=== PATIENT | female | born 1935 | race Caucasian/White ===

== ENCOUNTER → 2018-02-17 12:51 | Outpatient (CLI) | payer MEDICARE, SELFPAY ==
--- NOTE | 2018-02-17 | DI.MRI.S_ITS ---
PROCEDURE: MR KNEE RT WO CON INDICATIONS: INTERNAL DERANGEMENT OF RIGHT KNEE TECHNIQUE: Noncontrast sagittal PD fast spin echo and T2 fast spin echo with fat saturation, sagittal 3-D FLASH with fat saturation; coronal T1 spin echo and PD fast spin echo with fat saturation, and axial PD fast spin echo with fat saturation through the knee. COMPARISON: None. FINDINGS: Image quality: Excellent. Menisci: There is medial extrusion of the medial meniscus. Linear oblique high T2 signal intensity traverses the posterior horn medial meniscus, demonstrating inferior articular surface extension. Linear vertical height T2 signal intensity traverses the anterior horn lateral meniscus, demonstrating superior and inferior articular surface extension, indicating radial tearing. Cruciate ligaments: The anterior and posterior cruciate ligaments appear intact. Medial structures: The medial collateral ligament appears intact, but there is a small amount of surrounding T2 signal elevation, consistent with strain. The posterior oblique ligament, semimembranosus tendon insertions, oblique popliteal ligament, and meniscocapsular junction appear intact. Visualized portions of the pes anserinus tendons appear normal. No abnormal bursal fluid. Lateral structures: The lateral collateral ligament, long and short heads of the biceps femoris tendon appear intact. The popliteus tendon appears normal; the popliteofibular ligament appears intact. The posterosuperior and anteroinferior popliteomeniscal fascicles appear intact. The arcuate and fabellofibular ligaments appear intact, on either side of the lateral inferior geniculate artery. Iliotibial band appears normal. Anterior structures: The quadriceps and patellar tendons appear intact. Patellar alignment is normal. No femoral trochlear dysplasia or ventral trochlear prominence. No edema in the infrapatellar fat pad. Bones and cartilage: No bone marrow contusions or fractures. Mild ill-defined, presumably degenerative marrow edema within the medial femoral condyle and medial tibial plateau. There is severe articular cartilage loss overlying the medial patellar facet and adjacent apex. A few small intraosseous ganglia within the underlying patellar apex are present. There is moderate to severe diffuse articular cartilage loss overlying the weightbearing aspects of the medial femoral condyle and medial tibial plateau. Joint space: There is a small knee joint effusion and a small Love's cyst. Normal appearing synovial plicae are incidentally noted. IMPRESSION: 1. Medial and lateral meniscal tearing. 2. Medial and patellofemoral compartment articular cartilage loss. 3. MCL strain. 4. Small knee joint effusion and Love's cyst. Dictated by: Nagi Allen M.D. on 02/17/2018 at 13:26 Approved by: Nagi Allen M.D. on 02/17/2018 at 13:31
== END ==
PROVIDERS: PCP Internal Medicine; Visit Provider Orthopaedic Surgery
DX: S83.241A Other tear of medial meniscus, current injury, right knee, initial encounter (principal); S83.281A Other tear of lateral meniscus, current injury, right knee, initial encounter; S83.411A Sprain of medial collateral ligament of right knee, initial encounter; M25.461 Effusion, right knee; M71.21 Synovial cyst of popliteal space [Baker], right knee
CPT/HCPCS: 73721

== ENCOUNTER → 2019-05-27 15:02 | Outpatient (ROUT) | payer MEDICARE, SELFPAY ==
[2019-05-27 15:36] LABS: Add Manual Diff / Slide Review NO; Basophils Absolute Auto 0 /uL (0-100); Basophils Percent Auto 0.8 % (0-2); Eosinophils Absolute Auto 100 /uL (0-450); Eosinophils Percent Auto 2.7 % (2-4); Hematocrit 35.5 % (36-46); Hemoglobin 12.2 g/dL (12.0-16.0); Lymphocytes Absolute Auto 1100 /uL (1100-4500); Mean Corpuscular HGB Conc 34.5 % (30-36); Mean Corpuscular Hemoglobin 35.4 PG (26-34); Mean Corpuscular Volume 102.8 fL (80-100); Monocytes Absolute Auto 600 /uL (0-900); Monocytes Percent Auto 10.2 % (3-14); Neutrophils Absolute Auto 3600 /uL (1500-7000); Neutrophils Percent Auto 66.3 % (50-75); Platelet Count 177 X10^3/uL (150-400); Red Blood Cell Count 3.45 X10^6/uL (4.0-5.2); Red Cell Distribution Width 13.9 % (11.6-14.8); White Blood Cell Count 5.5 X10^3/uL (4.5-11.0)
[2019-05-27 15:48] LABS: Alanine Aminotransferase 37 IU/L (9-52); Albumin 4.6 g/dL (3.5-5.0); Albumin Globulin Ratio 1.8 (1.0-2.8); Alkaline Phosphatase 72 U/L (38-126); Aspartate Aminotransferase 30 IU/L (14-36); BUN Creatinine Ratio 28.9 (6-22); Bilirubin Total 0.7 mg/dL (0.2-1.3); Blood Urea Nitrogen 26 mg/dL (7-17); Calcium 9.7 mg/dL (8.4-10.2); Carbon Dioxide 28 mmol/L (22-32); Chloride 101 mmol/L (98-107); Cholesterol 141 mg/dL (140-199); Estimated Glomerular Filt Rate 59.9 mL/min (>60); Globulin 2.6 g/dL (1.7-4.1); Glucose 90 mg/dL (80-110); HDL Cholesterol 81 mg/dL (40-60); HEMOLYSIS < 15 (0-50); LDL Cholesterol Calculated 42 mg/dL (<100); Potassium 4.9 mmol/L (3.4-5.1); Sodium 138 mmol/L (137-145); Total Protein 7.2 g/dL (6.3-8.2); Triglycerides 88 mg/dL (35-150)
[2019-05-27 16:18] LABS: TSH w/ Reflex to FT4 1.83 uIU/mL (0.47-4.68)
[2019-05-28 16:10] LABS: Vitamin B12 530 pg/mL (239-931)
== END ==
PROVIDERS: PCP Internal Medicine; Visit Provider Internal Medicine
DX: I49.9 Cardiac arrhythmia, unspecified (principal); E78.2 Mixed hyperlipidemia
CPT/HCPCS: 80053; 80061; 82607; 84443; 85025

== ENCOUNTER → 2020-03-16 15:22 | Outpatient (ROUT) | payer MEDICARE, SELFPAY ==
[2020-03-16 15:58] LABS: Aspartate Aminotransferase 33 IU/L (14-36); BUN Creatinine Ratio 23.3 (6-22); Blood Urea Nitrogen 20 mg/dL (7-17); Calcium 9.5 mg/dL (8.4-10.2); Carbon Dioxide 27 mmol/L (22-32); Chloride 92 mmol/L (98-107); Cholesterol 143 mg/dL (140-199); Estimated Glomerular Filt Rate > 60.0 mL/min (>60); Glucose 84 mg/dL (80-110); HDL Cholesterol 92 mg/dL (40-60); HEMOLYSIS < 15 (0-50); LDL Cholesterol Calculated 36 mg/dL (<100); Potassium 4.4 mmol/L (3.4-5.1); Sodium 129 mmol/L (137-145); Triglycerides 77 mg/dL (35-150)
[2020-03-16 16:28] LABS: TSH w/ Reflex to FT4 1.42 uIU/mL (0.47-4.68)
== END ==
PROVIDERS: PCP Internal Medicine; Visit Provider Internal Medicine
DX: I10 Essential (primary) hypertension (principal); E78.2 Mixed hyperlipidemia; E03.9 Hypothyroidism, unspecified
CPT/HCPCS: 80048; 80061; 84443; 84450

== ENCOUNTER → 2021-06-05 10:52 | Outpatient (CLI) | payer MEDICARE, SELFPAY | PROVIDERS: PCP Internal Medicine; Referring Provider Internal Medicine; Visit Provider Internal Medicine | DX: M85.852 Other specified disorders of bone density and structure, left thigh (principal); Z78.0 Asymptomatic menopausal state; Z85.3 Personal history of malignant neoplasm of breast; Z87.891 Personal history of nicotine dependence; Z82.62 Family history of osteoporosis | CPT/HCPCS: 77080 ==

== ENCOUNTER 2021-12-26 14:04 | Emergency (ER) | payer MEDICARE, SELFPAY ==
[2021-12-26 14:15] VITALS: BP 137/63; PULSE 77; RESP 26; TEMP 36.7; O2SAT 93; BMI 21.1
--- NOTE | 2021-12-26 14:21 | DI.RAD.S_ITS ---
PROCEDURE: XR CHEST 2V INDICATIONS: shortness of breath TECHNIQUE: 2 views of the chest were acquired. COMPARISON: None. FINDINGS: Surgical changes and devices: Right breast clips. Lungs and pleura: Retrocardiac density. This could be an enlarged cardiac chamber such as left atrium. Streaky opacity at the lung bases. No pleural effusions or pneumothorax. Mediastinum: Mediastinal contours are normal. Heart size is normal. Bones and chest wall: No suspicious bony abnormalities. Scoliosis. Soft tissues appear unremarkable. IMPRESSION: Retrocardiac density which could represent an enlarged left atrium. A posterior mediastinal mass could have a similar appearance. This could be further evaluated with CT of the chest with IV contrast. Streaky opacity at the lung bases. This could be due to atelectasis or scarring. Dictated by: Jeffry Zaragoza M.D. on 12/26/2021 at 15:33 Approved by: Jeffry Zaragoza M.D. on 12/26/2021 at 15:35
[2021-12-26 14:44] LABS: Add Manual Diff / Slide Review NO; Basophils Absolute Auto 0 /uL (0-100); Basophils Percent Auto 0.5 % (0-2); Eosinophils Absolute Auto 500 /uL (0-450); Eosinophils Percent Auto 5.4 % (2-4); Hematocrit 36.2 % (36-46); Hemoglobin 12.4 g/dL (12.0-16.0); Lymphocytes Absolute Auto 1100 /uL (1100-4500); Lymphocytes Percent Auto 12.6 % (25-40); Mean Corpuscular HGB Conc 34.3 % (30-36); Mean Corpuscular Hemoglobin 34.6 PG (26-34); Mean Corpuscular Volume 101.1 fL (80-100); Monocytes Absolute Auto 900 /uL (0-900); Monocytes Percent Auto 10.4 % (3-14); Neutrophils Absolute Auto 6100 /uL (1500-7000); Neutrophils Percent Auto 71.1 % (50-75); Platelet Count 260 X10^3/uL (150-400); Red Blood Cell Count 3.58 X10^6/uL (4.0-5.2); Red Cell Distribution Width 14.2 % (11.6-14.8); White Blood Cell Count 8.6 X10^3/uL (4.5-11.0)
[2021-12-26 14:45] LABS: Alanine Aminotransferase 17 IU/L (<35); Albumin 4.5 g/dL (3.5-5.0); Albumin Globulin Ratio 1.4 (1.0-2.8); Alkaline Phosphatase 81 U/L (38-126); Aspartate Aminotransferase 32 IU/L (14-36); BUN Creatinine Ratio 15.7 (6-22); Bilirubin Total 0.8 mg/dL (0.2-1.3); Blood Urea Nitrogen 21 mg/dL (7-17); Calcium 8.9 mg/dL (8.4-10.2); Carbon Dioxide 23 mmol/L (22-32); Chloride 93 mmol/L (98-107); Estimated Glomerular Filt Rate 39 mL/min (>60); Globulin 3.3 g/dL (1.7-4.1); Glucose 85 mg/dL (80-110); HEMOLYSIS < 15 (0-50); Potassium 4.3 mmol/L (3.4-5.1); Sodium 126 mmol/L (137-145); Total Protein 7.8 g/dL (6.3-8.2)
[2021-12-26 14:46] LABS: Lactate (Lactic Acid) 1.1 mmol/L (0.7-2.1)
[2021-12-26 14:54] LABS: NT-proBNP (BNP-Adult 18+) 281 pg/mL (<450)
[2021-12-26 15:27] LABS: Creatine Kinase 60 U/L (30-135)
[2021-12-26 15:40] LABS: Troponin I < 0.012 ng/mL (0.01-0.034)
[2021-12-26 16:14] VITALS: PULSE 61; RESP 18; O2SAT 97
[2021-12-26 16:16] VITALS: BP 156/74; PULSE 61; RESP 24; O2SAT 97
--- NOTE | 2021-12-26 16:22 | ED.SOB ---
HPI - SOB/Dyspnea General Chief Complaint: Shortness of Breath/Dyspnea Stated Complaint: SOB- sent by Dr. Lloyd nurse Time Seen by Provider: 12/26/21 16:10 Source: patient Mode of arrival: Ambulatory Limitations: no limitations History of Present Illness HPI Narrative: 86-year-old female nonsmoker with history of hypertension, hyperlipidemia presents at the request of the nurse from her primary care's office for evaluation. She has had increasing shortness of breath with exertion for the past few weeks but over the past few days has had a significant worsening. She is not dizzy or lightheaded but has become weak and fatigued and certainly short of breath with wet sounding breath sounds with minimal exertion. She denies any waking, swelling of her lower extremities or orthopnea. She denies any recent travel, injury, history of blood clot or known cancer. She denies any new medications or dietary change Related Data Home Medications Medication Instructions Recorded Confirmed amlodipine 5 mg tablet 5 mg PO DAILY 11/09/21 11/09/21 cholecalciferol (vitamin D3) 25 25 mcg PO DAILY 11/09/21 11/09/21 mcg (1,000 unit) capsule hydrochlorothiazide 25 mg tablet 25 mg PO DAILY 11/09/21 11/09/21 levothyroxine 50 mcg tablet 50 mcg PO DAILY 11/09/21 11/09/21 losartan 100 mg tablet 100 mg PO DAILY 11/09/21 11/09/21 rosuvastatin 10 mg tablet 10 mg PO DAILY 11/09/21 11/09/21 valacyclovir 500 mg tablet 500 mg PO BID 11/09/21 11/09/21 Previous Rx's Medication Instructions Recorded tramadol 50 mg tablet 50 mg PO BID #180 tab 11/09/21 enoxaparin 60 mg/0.6 mL 50 mg (0.5 mL) SUBCUT DAILY #6 ml 12/26/21 subcutaneous syringe (Lovenox) Allergies Allergy/AdvReac Type Severity Reaction Status Date / Time No Known Drug Allergies Allergy Verified 12/26/21 14:21 Review of Systems Review of Systems Narrative: GENERAL: Denies chills, fatigue, malaise, fever, sweats. HEENT: Denies sinus pain, ear pain, sore throat, difficulty swallowing, dizziness. RESPIRATORY: See HPI CARDIOVASCULAR: See HPI GASTROINTESTINAL: Denies nausea, vomiting, abdominal pain, diarrhea, constipation, melena. : Denies dysuria, frequency, incontinence, hematuria, urinary retention. MUSCULOSKELETAL: denies weakness, joint pain, or bony pain SKIN: Denies rash, skin lesions, or other NEUROLOGIC: Denies weakness, headache, numbness, change in speech, confusion, seizures, incoordination. PSYCHIATRIC: No concerning psychosocial issues. 12 point review of systems is negative except for those stated above Patient History Medical History Acquired hypothyroidism Cerebrovascular disease Chronic low back pain without sciatica Do not resuscitate Encounter for general adult medical examination without abnormal findings Essential hypertension Macular degeneration Mixed hyperlipidemia Osteopenia after menopause Primary osteoarthritis Social History Smoking Status: Never smoker Smoking Status: Never smoker alcohol intake frequency: a few times a week Alcohol type: wine Substance Use Type: does not use Exam Narrative Exam Narrative: GENERAL: [86] year old patient appears stated age. Well-developed patient, in mild distress. HEAD: Atraumatic. Normocephalic. EYES: Pupils equal round and reactive. Extraocular motions intact. No scleral icterus. No injection or drainage. ENT: Nose without bleeding, purulent drainage. Throat without erythema, tonsillar hypertrophy or exudate. Airway patent. NECK: Trachea midline. Non tender CARDIOVASCULAR: Regular rate and rhythm without murmurs, gallops, or rubs. RESPIRATORY: Dyspneic, visibly short of breath with exertion, faint crackles in right base GASTROINTESTINAL: Abdomen soft, non-tender, nondistended. EXTREMITIES: No edema or joint tenderness. BACK: Nontender without deformity or crepitance. No flank tenderness. NEURO: AOx3. SKIN: No rash or erythema of visible areas Initial Vital Signs Initial Vital Signs: Vital Signs Temperature 98.1 F 12/26/21 14:15 Pulse Rate 77 12/26/21 14:15 Respiratory Rate 26 H 12/26/21 14:15 Blood Pressure 137/63 12/26/21 14:15 Pulse Oximetry 93 12/26/21 14:15 Course Orders Ordered: ED Orders 12/26/21 14:21 XR chest 2V Stat EKG-12 Lead Stat Measure peak expiratory flow ONCE RT Consult Eval and Treat Now 12/26/21 14:22 Complete Blood Count AUTO DIFF Stat Comprehensive Metabolic Panel Stat Lactate (Lactic Acid) Stat NT-proBNP (BNP-Adult 18+) Stat Troponin & CK Cardiac Panel Stat 12/26/21 16:33 EKG-12 Lead Stat 12/26/21 16:51 D Dimer Stat Troponin & CK Cardiac Panel Stat 12/26/21 17:29 CT angio chest PE protocol Stat Discontinued Medications Enoxaparin Sodium (Enoxaparin 40 Mg/0.4 Ml Syringe) 50 mg 1 mg/kg (50 mg) SUBCUT NOW ONE Stop: 12/26/21 20:02 Consultations Consultation #1: Discussed with on-call Oncology (Maddison) to discuss referral for obtaining tissue diagnosis as well as discussion regarding anticoagulation. He recommends Lovenox 1mg/kg daily for now, and close follow up with Dr. Vazquez for biopsy and local med oncology with Dr. Gonzalez Vital Signs Vital signs: Vital Signs - 8 hr 12/26/21 14:15 12/26/21 16:14 12/26/21 16:16 Temperature 98.1 F Pulse Rate 77 61 61 Respiratory Rate 26 H 18 24 Blood Pressure 137/63 156/74 H Pulse Oximetry 93 97 97 MDM - SOB/Dyspnea Lab Data Result diagrams: 12/26/21 14:22 12/26/21 14:22 Labs: Lab Results 12/26/21 12/26/21 12/26/21 Range/Units 14:22 14:22 14:22 WBC 8.6 (4.5-11.0) X10^3/uL RBC 3.58 L (4.0-5.2) X10^6/uL Hgb 12.4 (12.0-16.0) g/dL Hct 36.2 (36-46) % MCV 101.1 H (80-100) fL MCH 34.6 H (26-34) PG MCHC 34.3 (30-36) % RDW 14.2 (11.6-14.8) % Plt Count 260 (150-400) X10^3/uL Neut % (Auto) 71.1 (50-75) % Lymph % (Auto) 12.6 L (25-40) % [place] % (Auto) 10.4 (3-14) % Eos % (Auto) 5.4 H (2-4) % Baso % (Auto) 0.5 (0-2) % Neut # (Auto) 6100 (7919-2465) /uL Lymph # (Auto) 1100 (1975-7757) /uL [place] # (Auto) 900 (0-900) /uL Eos # (Auto) 500 H (0-450) /uL Baso # (Auto) 0 (0-100) /uL D-Dimer (<230) ng/mL Sodium 126 L (137-145) mmol/L Potassium 4.3 (3.4-5.1) mmol/L Chloride 93 L (98-107) mmol/L Carbon Dioxide 23 (22-32) mmol/L BUN 21 H (7-17) mg/dL Creatinine 1.34 H (0.52-1.04) mg/dL Estimated GFR 39 L (>60) mL/min BUN/Creatinine Ratio 15.7 (6-22) Glucose 85 (80-110) mg/dL Lactate 1.1 (0.7-2.1) mmol/L Calcium 8.9 (8.4-10.2) mg/dL Total Bilirubin 0.8 (0.2-1.3) mg/dL AST 32 (14-36) IU/L ALT 17 (<35) IU/L Alkaline Phosphatase 81 (38-126) U/L Total Creatine Kinase (30-135) U/L CK-MB (CK-2) CK-MB (CK-2) Rel Index Troponin I (0.01-0.034) ng/mL NT-Pro-B Natriuret Pep 281 (<450) pg/mL Total Protein 7.8 (6.3-8.2) g/dL Albumin 4.5 (3.5-5.0) g/dL Globulin 3.3 (1.7-4.1) g/dL Albumin/Globulin Ratio 1.4 (1.0-2.8) 12/26/21 12/26/21 12/26/21 Range/Units 14:22 16:51 16:51 WBC (4.5-11.0) X10^3/uL RBC (4.0-5.2) X10^6/uL Hgb (12.0-16.0) g/dL Hct (36-46) % MCV (80-100) fL MCH (26-34) PG MCHC (30-36) % RDW (11.6-14.8) % Plt Count (150-400) X10^3/uL Neut % (Auto) (50-75) % Lymph % (Auto) (25-40) % [place] % (Auto) (3-14) % Eos % (Auto) (2-4) % Baso % (Auto) (0-2) % Neut # (Auto) (0899-6097) /uL Lymph # (Auto) (3233-5870) /uL [place] # (Auto) (0-900) /uL Eos # (Auto) (0-450) /uL Baso # (Auto) (0-100) /uL D-Dimer 980 H (<230) ng/mL Sodium (137-145) mmol/L Potassium (3.4-5.1) mmol/L Chloride (98-107) mmol/L Carbon Dioxide (22-32) mmol/L BUN (7-17) mg/dL Creatinine (0.52-1.04) mg/dL Estimated GFR (>60) mL/min BUN/Creatinine Ratio (6-22) Glucose (80-110) mg/dL Lactate (0.7-2.1) mmol/L Calcium (8.4-10.2) mg/dL Total Bilirubin (0.2-1.3) mg/dL AST (14-36) IU/L ALT (<35) IU/L Alkaline Phosphatase (38-126) U/L Total Creatine Kinase 60 52 (30-135) U/L CK-MB (CK-2) TNP TNP CK-MB (CK-2) Rel Index TNP TNP Troponin I < 0.012 < 0.012 (0.01-0.034) ng/mL NT-Pro-B Natriuret Pep (<450) pg/mL Total Protein (6.3-8.2) g/dL Albumin (3.5-5.0) g/dL Globulin (1.7-4.1) g/dL Albumin/Globulin Ratio (1.0-2.8) Imaging Data Chest x-ray: Radiologist's Impression: Launch?[address] [address] XRay Report Signed Patient: Ginna Nunez MR#: [id number] : 1935 Acct:[id number] Age/Sex: 86 / F Date of Service: 12/26/21 Loc: ED Accession Number: [id number] ?? Procedure: XR chest 2V Ordering Provider: Jamal Day D.O. PROCEDURE:? XR CHEST 2V ? INDICATIONS:? shortness of breath ? TECHNIQUE:? 2 views of the chest were acquired.? ? COMPARISON:? None. ? FINDINGS:? ? Surgical changes and devices:? Right breast clips. ? Lungs and pleura:? Retrocardiac density.? This could be an enlarged cardiac chamber such as left atrium.? Streaky opacity at the lung bases.? No pleural effusions or pneumothorax.? ? Mediastinum:? Mediastinal contours are normal.? Heart size is normal.? ? Bones and chest wall:? No suspicious bony abnormalities.? Scoliosis.? Soft tissues appear unremarkable.? ? IMPRESSION:? Retrocardiac density which could represent an enlarged left atrium.? A posterior mediastinal mass could have a similar appearance. ? This could be further evaluated with CT of the chest with IV contrast. ? Streaky opacity at the lung bases.? This could be due to atelectasis or scarring.? ? Dictated by: Jeffry Zaragoza M.D. on 12/26/2021 at 15:33 ? ? Approved by: Jeffry Zaragoza M.D. on 12/26/2021 at 15:35 ? CT scan - chest: Radiologist's Impression: Launch?[place] [address] XRay Report Signed Patient: Ginna Nunez MR#: [id number] : 1935 Acct:[id number] Age/Sex: 86 / F Date of Service: 12/26/21 Loc: ED Accession Number: [id number] ?? Procedure: XR chest 2V Ordering Provider: Jamal Day D.O. PROCEDURE:? XR CHEST 2V ? INDICATIONS:? shortness of breath ? TECHNIQUE:? 2 views of the chest were acquired.? ? COMPARISON:? None. ? FINDINGS:? ? Surgical changes and devices:? Right breast clips. ? Lungs and pleura:? Retrocardiac density.? This could be an enlarged cardiac chamber such as left atrium.? Streaky opacity at the lung bases.? No pleural effusions or pneumothorax.? ? Mediastinum:? Mediastinal contours are normal.? Heart size is normal.? ? Bones and chest wall:? No suspicious bony abnormalities.? Scoliosis.? Soft tissues appear unremarkable.? ? IMPRESSION:? Retrocardiac density which could represent an enlarged left atrium.? A posterior mediastinal mass could have a similar appearance. ? This could be further evaluated with CT of the chest with IV contrast. ? Streaky opacity at the lung bases.? This could be due to atelectasis or scarring.? ? Dictated by: Jeffry Zaragoza M.D. on 12/26/2021 at 15:33 ? ? Approved by: Jeffry Zaragoza M.D. on 12/26/2021 at 15:35 ? MDM Narrative Medical decision making narrative: 86-year-old female former smoker with prior history of breast cancer presents with increasing shortness of breath over the past few weeks. Vital signs are reassuring and physical exam notes only crackles in the right base. Advanced imaging notes a small peripheral pulmonary embolism, which is absent of any indication of need for mechanical retrieval. Additionally, she has a small right-sided pleural effusion which is not in need of emergent pleurocentesis, finally a large newly discovered mass most consistent and concerning for cancerous lesion in her right hilar region. Patient is very clear about her wishes and states that she likely would not want any significant interventions or treatments, certainly not chemotherapy but is open to follow up, tissue diagnosis and conversations with Oncology to examine her options. She is given extensive return precautions and questions have been answered to her apparent satisfaction Discharge Plan Departure Patient Disposition: Home Clinical Impression: Pulmonary embolism, Lung mass, Pleural effusion Instructions: DI for Shortness of Breath Activity Restrictions/Additional Instructions: *You have been diagnosed with [shortness of breath due to a newly discovered, small pulmonary embolism, small pleural effusion and newly discovered large pulmonary mass that, as we discussed this concerning for a cancerous lesion. *What to do: *Please continue to take your regular medications as directed. [ x] New medication prescriptions sent to your pharmacy: [[facility] in [place] ] [ ] New medication written as a paper prescription [ ] No new medications given *Please follow up with your primary care provider in 2-3 days, call for an appointment. Let them know you were seen in the Emergency Department and that we ask that you be seen in follow up. We will electronically transmit a record of today's note if your PCP is in our system *As we discussed, follow up with oncology to get guidance and treatment recommendations. Please call the [facility] (number listed below), let them know that you were seen in the emergency department and we asked that you be seen in follow-up * also as we discussed, in order for the oncologist to help make appropriate recommendations they will need information from a tissue biopsy. Per my conversation with the oncologist this evening he recommended you follow-up with Dr. Vazquez at [facility]. Please call the office tomorrow, let them know the your seen in the emergency department and that we would like you seen in follow-up for help obtaining a tissue diagnosis of a newly discovered lung mass *Return to Emergency Department if you should have any new, worsening or concerning symptoms Prescriptions: New enoxaparin [Lovenox] 60 mg/0.6 mL syringe 50 mg SUBCUT DAILY Qty: 6 0RF No Action hydrochlorothiazide 25 mg tablet 25 mg PO DAILY 0RF levothyroxine 50 mcg tablet 50 mcg PO DAILY 0RF valacyclovir 500 mg tablet 500 mg PO BID 0RF cholecalciferol (vitamin D3) 25 mcg (1,000 unit) capsule 25 mcg PO DAILY 0RF losartan 100 mg tablet 100 mg PO DAILY 0RF amlodipine 5 mg tablet 5 mg PO DAILY 0RF rosuvastatin 10 mg tablet 10 mg PO DAILY 0RF tramadol 50 mg tablet 50 mg PO BID Qty: 180 1RF Referrals: Stu Archer MD [Primary Care Provider] - Zay Vazquez MD [Non-Staff] - Alexia Gonzalez MD [Physician] -
[2021-12-26 17:10] LABS: Creatine Kinase 52 U/L (30-135)
[2021-12-26 17:12] LABS: D Dimer 980 ng/mL (<230)
[2021-12-26 17:22] LABS: Troponin I < 0.012 ng/mL (0.01-0.034)
--- NOTE | 2021-12-26 17:29 | DI.CT.S_ITS ---
PROCEDURE: CT ANGIO CHEST PE PROTOCOL INDICATIONS: cough, SOB, hypoxemia, critical D Dimer TECHNIQUE: After the administration of intravenous contrast, 2 mm thick sections acquired from the pulmonary apices to the posterior costophrenic angles. For radiation dose reduction, the following was used: automated exposure control, adjustment of mA and/or kV according to patient size. COMPARISON: None. FINDINGS: Image quality: Excellent. Pulmonary arteries: And tiny left lower lobe single pulmonary subsegmental embolism noted. Remainder of the pulmonary arteries are clear. Lungs and pleura: Large right hilar and right lower lobe mass lesion measures 4.5 x 4.4 x 6.2 cm. Mass surrounds the right bronchus intermedius, right lower and right middle lobe bronchi. Mediastinal bulky adenopathy present measuring up to 1.7 cm. Biapical pulmonary emphysema and moderate right pleural effusion present. Mediastinum: Heart size is enlarged. 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 No mediastinal or hilar adenopathy. Thoracic aorta is normal in caliber and enhancement. Esophagus is normal in caliber. Small hiatal hernia present. Bones and chest wall: No suspicious bony lesions. Ribs and thoracic spine appear intact throughout. Thyroid gland unremarkable. No axillary or supraclavicular adenopathy. Clips noted in the right breast. Abdomen: 2 cm right hepatic cyst present. Smaller left hepatic hypodensities are nonspecific. Left extrarenal pelvis noted. IMPRESSION: 1. Tiny left lower lobe solitary peripheral pulmonary embolism. 2. Large right perihilar mass lesion with associated bulky adenopathy, consistent with pulmonary neoplasm. 3. Moderate right pleural effusion and biapical pulmonary emphysema Note: Critical results were discussed with the patient's ER physician at 05:21 PM [place] time on 12/26/21 Approved by: Van Art M.D. on 12/26/2021 at 17:22
[2021-12-26] MEDS: ENOXAPARIN 40 MG/0.4 ML SYRINGE 50 MG SUBCUT (20:21)
[2021-12-26 20:39] VITALS: BP 163/70; PULSE 80; RESP 24; O2SAT 92
== END 2021-12-26 20:45 | disposition home or self-care (01) ==
PROVIDERS: Emergency Provider Emergency Medicine; PCP Internal Medicine
DX: I26.99 Other pulmonary embolism without acute cor pulmonale (principal); R91.8 Other nonspecific abnormal finding of lung field; J90 Pleural effusion, not elsewhere classified
CPT/HCPCS: 36415; 71046; 71275; 80053; 82550; 83605; 83880; 84484; 85025; 85379; 93005; 96372; 99284; J1650; Q9967

== ENCOUNTER → 2022-01-01 13:53 | Outpatient (CLI) | payer MEDICARE, SELFPAY ==
[2022-01-01 15:21] LABS: Blood Urea Nitrogen 30 mg/dL (7-17); Calcium 8.9 mg/dL (8.4-10.2); Carbon Dioxide 25 mmol/L (22-32); Chloride 92 mmol/L (98-107); Estimated Glomerular Filt Rate 32 mL/min (>60); Glucose 100 mg/dL (80-110); HEMOLYSIS < 15 (0-50); Potassium 4.6 mmol/L (3.4-5.1); Sodium 125 mmol/L (137-145)
== END ==
PROVIDERS: PCP Internal Medicine; Referring Provider Internal Medicine; Visit Provider Internal Medicine
DX: I26.99 Other pulmonary embolism without acute cor pulmonale (principal)
CPT/HCPCS: 36415; 80048

== ENCOUNTER → 2022-01-18 14:41 | Outpatient (CLI) | payer MEDICARE, SELFPAY ==
--- NOTE | 2022-01-18 14:44 | DI.CT.S_ITS ---
PROCEDURE: CT CHEST WO CON INDICATIONS: lung cancer, right; right pleural effusion TECHNIQUE: Noncontrast 5 mm thick sections acquired from the pulmonary apices to the posterior costophrenic angles. 1 mm lung window, 5 mm thick coronal and sagittal and 7 mm axial MIP reformats were then acquired. For radiation dose reduction, the following was used: automated exposure control, adjustment of mA and/or kV according to patient size. COMPARISON: [facility], CR, XR CHEST 1 VIEW, 01/11/2022, 15:11. [facility], CT, CT VERAN CHEST, 01/11/2022, 12:57. [facility], CT, CT ANGIO CHEST PE PROTOCOL, 12/26/2021, 17:44. FINDINGS: Image quality: Excellent. Lungs and pleura: There is a moderate right-sided pleural effusion. Consolidative change can be seen at the right lung base, which is a combination of the patient's known mass as well as atelectasis. Centrilobular emphysematous changes are seen. These are more prominent at the lung apices than at the lung bases. Narrowing of the right middle lobe and right lower lobe bronchi can be seen. Mediastinum: Enlarged mediastinal lymph nodes are seen, which are relatively poorly defined without IV contrast. There is a precarinal lymph node seen that measures 18 x 15. Heart size is normal. There is a small pericardial effusion. Thoracic aorta and central pulmonary arteries are normal in size. Esophagus is normal in caliber. No hiatal hernia. Bones and chest wall: No suspicious bony lesions. No vertebral body compression fractures. Age-appropriate bony degenerative changes are seen. No axillary or supraclavicular adenopathy by size criteria. Thyroid gland is small in size. Abdomen: There is a simple appearing right liver cyst that measures 2 cm and water density. Benign-appearing calcification can be seen involving the right medial liver. The visualized portions of the upper abdominal structures are otherwise unremarkable for imaging technique. IMPRESSION: Moderate right-sided pleural effusion. Consolidative change seen involving the right lung base and the right perihilar region, which is attributed to a combination of neoplasm and atelectasis. Overall, the degree of consolidated lung is progressed compared to 12/26/2021 CT examination. Narrowing of the right middle lobe and right lower lobe bronchi can be seen. Enlarged mediastinal lymph nodes are again seen. A small pericardial effusion can be seen. Incidental note is made of: Simple appearing right liver cyst Benign appearing right liver calcification Dictated by: Favio Thompson M.D. on 01/18/2022 at 15:09 Approved by: Favio Thompson M.D. on 01/18/2022 at 15:14
--- NOTE | 2022-01-18 14:44 | DI.MRI.S_ITS ---
PROCEDURE: MR HEAD/BRAIN WO/W CON INDICATIONS: Lung cancer staging TECHNIQUE: Noncontrast axial T1 spin echo, axial T2 fast spin echo, sagittal and axial FLAIR, coronal T2 fast spin echo, axial gradient echo, axial diffusion and ADC through the brain. After the administration of contrast, axial and coronal and sagittal 3D VIBE or T1 spin echo with fat saturation through the brain. COMPARISON: None. FINDINGS: Image quality: Excellent. CSF Spaces: Basal cisterns are patent. No extra-axial fluid collections. Ventricles are normal in size and shape. Brain: No midline shift. No intracranial bleeds or masses. No abnormal intracranial enhancement. The brainstem appears normal. Diffusion-weighted images demonstrate no acute ischemic insults. No chronic ischemic insults. Normal intravascular flow voids are present. Skull and face: Calvarial marrow is normal in signal. Orbits appear normal. Sinuses: Sinuses and mastoids appear clear. IMPRESSION: No evidence of intracranial metastatic disease. Moderate global cerebral volume loss and severe chronic microvascular ischemic changes. Dictated by: Guille Lainez M.D. on 01/18/2022 at 16:27 Approved by: Guille Lainez M.D. on 01/18/2022 at 16:29
== END ==
PROVIDERS: PCP Internal Medicine; Referring Provider Internal Medicine Hematology & Oncology; Visit Provider Internal Medicine Hematology & Oncology
DX: C34.31 Malignant neoplasm of lower lobe, right bronchus or lung (principal); J90 Pleural effusion, not elsewhere classified; R79.89 Other specified abnormal findings of blood chemistry; I31.3 Pericardial effusion (noninflammatory); R59.0 Localized enlarged lymph nodes; J98.11 Atelectasis; K76.89 Other specified diseases of liver
CPT/HCPCS: 70553; 71250